=== PATIENT | male | born 1965 | race American Indian/Alaskan Native ===

== ENCOUNTER 2016-12-27 01:30 | Emergency (ER) | payer OTHER ==
[2016-12-27] MEDS ORDERED: CATAPRES ONE (02:10)
[2016-12-27] MEDS ORDERED: CATAPRES PO ONE (02:13)
[2016-12-27 02:23] LABS: Basophils % (Auto) 1.2 % (0.0-1.8); Eosinophils % (Auto) 3.7 % (0.0-4.3); Hematocrit 41.6 % (35.5-45.6); Hemoglobin 13.8 gm/dl (11.8-15.2); Mean Corpuscular HGB Conc 33 % (32-34); Mean Corpuscular Hemoglobin 28 pg (28-32); Mean Corpuscular Volume 83 fl (84-94); Platelet Count 199 K/mm3 (140-440); Red Blood Count 4.99 M/mm3 (3.65-5.03); Red Cell Distribution Width 14.9 % (13.2-15.2); White Blood Count 9.6 K/mm3 (4.5-11.0)
[2016-12-27 02:41] LABS: Anion Gap 18 mmol/L; BUN/Creatinine Ratio 18.75; Blood Urea Nitrogen 15 mg/dL (9-20); Calcium 8.6 mg/dL (8.4-10.2); Carbon Dioxide 25 mmol/L (22-30); Chloride 103.4 mmol/L (98-107); Glucose 149 mg/dL (75-100); Potassium 3.6 mmol/L (3.6-5.0); Sodium 143 mmol/L (137-145)
--- NOTE | 2016-12-27 03:06 | Cat Scan Report ---
FINAL REPORT EXAM: CT HEAD/BRAIN WO CON HISTORY: headache HTN COMPARISON: None available. TECHNIQUE: Axial images obtained skull base through vertex. FINDINGS: No acute intracranial hemorrhage, midline shift or pathologic extra axial fluid collection. Ventricles and cisterns are normal in size and configuration for the patient's age. Chavarria-white differentiation preserved. Calvarium grossly intact. Mild to moderate mucosal thickening the paranasal sinuses. Tiny amount of fluid in the mastoid air cells. Orbits are grossly unremarkable. IMPRESSION: No grossly acute intracranial abnormality.
[2016-12-27] MEDS ORDERED: TYLENOL PO ONE (12:06)
[2016-12-27] MEDS ORDERED: MOTRIN PO ONE (12:06)
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
[2016-12-27 13:27] VITALS: BP 173/98
== END 2016-12-27 12:30 | disposition home or self-care (01) ==
LOC: ED 01:30
DX: I10 Essential (primary) hypertension (principal); R51 Headache; M54.2 Cervicalgia
CPT/HCPCS: 36415; 70450; 80048; 85025; 93005; 93010; 99284

== ENCOUNTER 2020-11-05 16:25 | Emergency (ER) | payer BC, OTHER ==
[2020-11-05] MEDS ORDERED: ACETAMINOPHEN 500 MG TAB PO ONE (18:06)
--- NOTE | 2020-11-05 18:09 | Event Note ---
ED Screening Note Date of service: 11/05/20 Time: 18:07 ED Screening Note: 55 y/o male pt w/ hx of HTN presents to ED w/ complaints of non-traumatic right lower back pain with associated nausea, vomiting, and urinary discoloration starting approximately 16 hours ago. No prior history of kidney stones. No medications prior to arrival. Hypertensive in triage. General: Awake, appropriately interactive, no acute distress. Neck: Supple. Full range of motion intact. Cardiovascular: Regular rate and rhythm. Normal peripheral perfusion. Pulmonary: Clear to auscultation. No respiratory distress. Patient is speaking normally without use of accessory muscles. Skin: No apparent rashes or lesions. Neurological: No facial asymmetry. Speech is clear. Follows commands. Patient is alert and oriented. Musculoskeletal: Right CVA tenderness. Moves all four extremities spontaneously with normal range of motion. Psych: Cooperative. Appropriate mood and affect. I have greeted and performed a focused rapid initial assessment of this patient. A comprehensive ED assessment and evaluation of the patient, analysis of all test results, and completion of the medical decision-making process will be conducted by additional ED providers. This initial assessment/diagnostic orders/clinical plan/treatment(s) is/are subject to change based on patients health status, clinical progression and re-assessment. Further treatment and workup at subsequent clinical provider's discretion. Patient/guardian urged not to elope from the ED as their condition may be serious if not clinically assessed and managed. Patient will likely require imaging; choice of study deferred to additional ED providers.
[2020-11-05 18:55] LABS: Basophils # (Auto) 0.1 K/mm3 (0.0-0.1); Basophils % (Auto) 0.5 % (0.0-1.8); Eosinophils # (Auto) 0.1 K/mm3 (0.0-0.4); Eosinophils % (Auto) 0.8 % (0.0-4.3); Hematocrit 45.6 % (35.5-45.6); Lymphocytes # (Auto) 1.3 K/mm3 (1.2-5.4); Lymphocytes % (Auto) 8.6 % (13.4-35.0); Mean Corpuscular HGB Conc 33 % (32-34); Mean Corpuscular Volume 88 fl (84-94); Monocytes # (Auto) 0.7 K/mm3 (0.0-0.8); Monocytes % (Auto) 4.8 % (0.0-7.3); Platelet Count 190 K/mm3 (140-440); Red Cell Distribution Width 14.5 % (13.2-15.2)
[2020-11-05 18:56] LABS: Bilirubin,Urine NEG (Negative); Blood,Urine LG (Negative); Color,Urine Yellow (Yellow); Mucus,Urine FEW /HPF; Protein,Urine <15 mg/dL mg/dL (Negative); Urobilinogen,Urine < 2.0 mg/dL (<2.0)
[2020-11-05 18:59] LABS: RBC,Urine > 182.0 /HPF (0.0-6.0)
[2020-11-05 19:18] LABS: Alanine Aminotransferase 33 units/L (7-56); Albumin 3.8 g/dL (3.9-5); BUN/Creatinine Ratio 14; Blood Urea Nitrogen 13 mg/dL (9-20); Calcium 8.5 mg/dL (8.4-10.2); Hemolysis Index 44
[2020-11-05] MEDS ORDERED: ACETAMINOPHEN 500 MG TAB ONE (20:14)
[2020-11-05] MEDS ORDERED: KETOROLAC 30 MG/1 ML INJ IV ONE (20:47)
[2020-11-05] MEDS ORDERED: SODIUM CHLORIDE 0.9% 1000 ML 1,000 ML IV ONE (20:47)
--- NOTE | 2020-11-05 20:50 | Emergency Department Report ---
ED Abdominal Pain HPI - General Chief Complaint: Urogenital-Male Stated Complaint: BACK/SIDE PAIN Time Seen by Provider: 11/05/20 20:39 Source: patient Mode of arrival: Ambulatory Limitations: No Limitations - History of Present Illness Initial Comments: 55-year-old male, history of hypertension, presents to ED with right flank pain since this afternoon. He reports associated episodes of nausea and vomiting. He denies any fever, hematuria or dysuria. Patient reports some urinary frequency. Patient states pain is throbbing, nonradiating. Patient's blood pressure is elevated. He reports noncompliance with his Benicar for several months. MD Complaint: flank pain -: This afternoon Location: R flank Radiation: none Migration to: no migration Severity: moderate Severity scale (0 -10): 5 Quality: aching Consistency: constant Improves With: nothing Worsens With: nothing Associated Symptoms: nausea, vomiting. denies: diarrhea, fever, dysuria, hematuria - Related Data Previous Rx's Medication Instructions Recorded Last Taken Type Ketorolac [Toradol] 10 mg PO Q6H PRN #20 tablet 12/27/16 Unknown Rx hydroCHLOROthiazide [HCTZ] 12.5 mg PO QDAY #30 capsule 12/27/16 Unknown Rx lisinopriL [Zestril TAB] 20 mg PO QDAY #30 tablet 12/27/16 Unknown Rx methOCARBAMOL [Robaxin TAB] 1,500 mg PO TID PRN #30 tab 12/27/16 Unknown Rx Naproxen [Naprosyn] 500 mg PO BID #20 tablet 11/05/20 Unknown Rx Olmesartan/Hydrochlorothiazide 1 each PO QDAY #30 tablet 11/05/20 Unknown Rx [Benicar Hct 20-12.5 mg Tablet] Ondansetron [Zofran Odt] 4 mg PO Q8HR PRN #20 tab.rapdis 11/05/20 Unknown Rx traMADoL [Ultram] 50 mg PO Q6HR PRN #7 tablet 11/05/20 Unknown Rx Allergies Allergy/AdvReac Type Severity Reaction Status Date / Time No Known Allergies Allergy Verified 11/05/20 17:30 ED Review of Systems ROS: Stated complaint: BACK/SIDE PAIN Other details as noted in HPI Comment: All other systems reviewed and negative Constitutional: denies: chills, fever Gastrointestinal: denies: abdominal pain, vomiting, diarrhea Genitourinary: denies: dysuria, frequency, hematuria Musculoskeletal: back pain ED Past Medical Hx - Past Medical History Hx Hypertension: Yes - Surgical History Additional Surgical History: right foot surgery. right hand carpel tunnel - Social History Smoking Status: Never Smoker Substance Use Type: None - Medications Home Medications: Home Medications Medication Instructions Recorded Confirmed Last Taken Type Ketorolac [Toradol] 10 mg PO Q6H PRN #20 tablet 12/27/16 Unknown Rx hydroCHLOROthiazide [HCTZ] 12.5 mg PO QDAY #30 capsule 12/27/16 Unknown Rx lisinopriL [Zestril TAB] 20 mg PO QDAY #30 tablet 12/27/16 Unknown Rx methOCARBAMOL [Robaxin TAB] 1,500 mg PO TID PRN #30 tab 12/27/16 Unknown Rx Naproxen [Naprosyn] 500 mg PO BID #20 tablet 11/05/20 Unknown Rx Olmesartan/Hydrochlorothiazide 1 each PO QDAY #30 tablet 11/05/20 Unknown Rx [Benicar Hct 20-12.5 mg Tablet] Ondansetron [Zofran Odt] 4 mg PO Q8HR PRN #20 tab.rapdis 11/05/20 Unknown Rx traMADoL [Ultram] 50 mg PO Q6HR PRN #7 tablet 11/05/20 Unknown Rx ED Physical Exam - General Limitations: No Limitations General appearance: alert, in no apparent distress - Head Head exam: Present: atraumatic, normocephalic - Eye Eye exam: Present: normal appearance - ENT ENT exam: Present: mucous membranes moist - Neck Neck exam: Present: normal inspection - Respiratory Respiratory exam: Present: normal lung sounds bilaterally. Absent: respiratory distress - Cardiovascular Cardiovascular Exam: Present: regular rate, normal rhythm - GI/Abdominal GI/Abdominal exam: Present: soft. Absent: distended, tenderness - Extremities Exam Extremities exam: Present: normal inspection - Back Exam Back exam: Absent: CVA tenderness (R), CVA tenderness (L) - Neurological Exam Neurological exam: Present: alert, oriented X3 - Psychiatric Psychiatric exam: Present: normal affect, normal mood - Skin Skin exam: Present: warm, dry, intact, normal color ED Course Vital Signs 11/05/20 11/05/20 11/05/20 17:29 21:07 21:13 Temperature 98.4 F Pulse Rate 80 Respiratory 15 16 Rate Blood Pressure 199/101 Blood Pressure [Right] O2 Sat by Pulse 98 Oximetry 11/05/20 11/05/20 11/05/20 21:14 21:20 21:37 Temperature 98.2 F Pulse Rate 89 89 Respiratory 15 15 Rate Blood Pressure 219/112 Blood Pressure 219/112 [Right] O2 Sat by Pulse 100 Oximetry 11/05/20 11/05/20 22:41 23:01 Temperature Pulse Rate 90 83 Respiratory 16 Rate Blood Pressure Blood Pressure 208/113 181/90 [Right] O2 Sat by Pulse 99 Oximetry ED Medical Decision Making - Lab Data Result diagrams: 11/05/20 18:27 11/05/20 18:27 - Radiology Data Radiology results: report reviewed, image reviewed - Medical Decision Making 55-year-old male presents to ED with right flank pain. UA shows hematuria. The scan shows 3 mm right UVJ stone with inflammatory stranding within and around the kidney. UA does not reflect UTI or infection. Patient is afebrile. IV f luid bolus and Toradol given for pain. Patient also given clonidine for his blood pressure. Reports noncompliance with his BP medication. Patient feeling much better at this time. Will discharge home with prescriptions. Outpatient follow-up with urology advised, return precautions given. Patient also informed of incidental lung nodule on CT, and need to follow-up in [address] scan. - Differential Diagnosis Kidney stone, pyelonephritis, gallstones Critical care attestation.: If time is entered above; I have spent that time in minutes in the direct care of this critically ill patient, excluding procedure time. ED Disposition Clinical Impression: Kidney stone on right side, Uncontrolled hypertension Disposition: DC-01 TO HOME OR SELFCARE Is pt being admited?: No Condition: Stable Instructions: Kidney Stones, [id number], Hypertension (ED) Additional Instructions: There was an incidental finding of a 4 mm nodule in your right lower lung on your CAT scan. Repeat CT recommended in 12 months. Prescriptions: Olmesartan/Hydrochlorothiazide [Benicar Hct 20-12.5 mg Tablet] 1 each PO QDAY #30 tablet Naproxen [Naprosyn] 500 mg PO BID #20 tablet traMADoL [Ultram] 50 mg PO Q6HR PRN #7 tablet PRN Reason: Pain Ondansetron [Zofran Odt] 4 mg PO Q8HR PRN #20 tab.rapdis PRN Reason: Vomiting Referrals: [facility] [Provider Group] - 3-5 Days ACE REIS MD [Staff Physician] - 3-5 Days [facility], [Primary Care Provider] - 3-5 Days DIOGENES NGUYEN MD [Staff Physician] - 3-5 Days
[2020-11-05] MEDS ORDERED: cloNIDine 0.2 MG TAB PO ONE (21:17)
--- NOTE | 2020-11-05 21:17 | Cat Scan Report ---
CT ABDOMEN AND PELVIS WITHOUT CONTRAST HISTORY: right flank pain. COMPARISON: None. TECHNIQUE: CT images of the abdomen and pelvis were obtained without administration of intravenous co ntrast. All CT scans at this location are performed using CT dose reduction for ALARA by means of au tomated exposure control. FINDINGS: Lungs/bones: Minimal increased density in the right lower lung could represent atelectasis. There is a 4 mm pulmonary nodule. Abdomen/pelvis: Within limits of a noncontrast exam the liver, spleen, adrenal glands, gallbladder a nd upper GI tract appear normal. Marked inflammatory change with some fluid inflammation surrounding the right kidney and proximal ure ter. There is a distal right ureteral stone at the level of the UVJ measuring 3 mm. Mild right hydrou reteronephrosis. Urinary bladder appears normal. Degenerative changes seen throughout spine. IMPRESSION: 1. Right UVJ calculus measuring 3 mm with right hydroureteronephrosis. Marked inflammatory stranding within and surrounding the right kidney is seen. Clinical correlation with urinalysis to exclude infe ction. 2. 4 mm pulmonary nodule in the right lower lung. INCIDENTAL PULMONARY NODULE RECOMMENDATION RECOMMENDATION: Solid Nodule size <6 mm -- Single or Multiple - Low Risk Patient: No routine follow-up - High Risk Patient: Optional CT at 12 months Note These recommendations do not apply to lung cancer screening, patients with immunosuppression, o r patients with known primary cancer. Note Newly detected indeterminate nodule in persons 35 years of age or older. Persons under the age of 35 should not receive follow-up unless there is a known primary cancer. Note Perifissural Nodule is a fissure-attached/subpleural, homogeneous, solid nodule that has smooth margins and an oval, lentiform, or triangular shape. They represent about 20% of nodules detected in lung cancer screening, are invariably benign, and do not require follow-up. Nodules 10 mm or larger (or those with suspicious features) will continue to be managed based on the size criteria. Low Risk Patient = minimal or absent history of smoking and of other known risk factors. High Risk Patient = history of smoking or of other known risk factors. Nodule dimensions are average of long and short axes, rounded to the nearest millimeter. Based on 2017 Fleischner Society Guidelines found in Radiology 2017 284:228-243. https://[email or web address] https://www.ncbi.nlm.nih.gov/[facility]/articles/OFW6904911/ Signer Name: Saknet Post MD Signed: 11/05/2020 9:13 PM Workstation Name: [id number]
[2020-11-05 23:01] VITALS: BP 181/90
== END 2020-11-05 23:40 | disposition home or self-care (01) ==
LOC: ED 16:25
DX: N20.0 Calculus of kidney (principal); I10 Essential (primary) hypertension; Z98.890 Other specified postprocedural states; Z79.899 Other long term (current) drug therapy
CPT/HCPCS: 36415; 74176; 80053; 81001; 83735; 85025; 96361; 96374; 99284; J1885; J7030